=== PATIENT | female | born 1985 | race Caucasian/White ===

== ENCOUNTER 2018-09-28 05:06 | Emergency (ER) | payer BC ==
--- NOTE | 2018-09-28 05:30 | EDPHY ---
H & P Stated Complaint: Took wrong medication by mistake, zoloft instead of Prozac Time Seen by Provider: 09/28/18 05:30 HPI/ROS: HPI CHIEF COMPLAINT: Accidentally took a dose of Zoloft. HISTORY OF PRESENT ILLNESS: 33-year-old female, otherwise healthy does have a history of depression, currently on Prozac, accidentally took a dose of Zoloft last night. Patient reports that she has had racing heart since taking this she has been up all night. Very little sleep. She arrives to the emergency room due to this. Denies any chest pain or shortness of breath. Does feel anxious. Past Medical History: Depression Past Surgical History: No recent surgery Social History: Denies drugs alcohol tobacco. Family History: Noncontributory ROS REVIEW OF SYSTEMS: 10 Systems were reviewed and negative with the exception of the elements mentioned in the history of present illness. Exam Constitutional nontoxic, triage nursing summary reviewed, vital signs reviewed , awake/alert. Eyes normal conjunctivae and sclera, EOMI, PERRLA. HENT normal inspection, atraumatic, moist mucus membranes, no epistaxis, neck supple/ no meningismus, no raccoon eyes. Respiratory clear to auscultation bilaterally, normal breath sounds, no respiratory distress, no wheezing. Cardiovascular rate normal, regular rhythm, no murmur, no edema, distal pulses normal. Gastrointestinal soft, non-tender, no rebound, no guarding, normal bowel sounds, no distension, no pulsatile mass. Genitourinary no CVA tenderness. Musculoskeletal no midline vertebral tenderness, full range of motion, no calf swelling, no tenderness of extremities, no meningismus, good pulses, neurovascularly intact. Skin pink, warm, & dry, no rash, skin atraumatic. Neurologic awake, alert and oriented x 3, AAOx3, moves all 4 extremities equally, motor intact, sensory intact, CN II-XII intact, normal cerebellar, normal vision, normal speech. Psychiatric normal mood/affect. Heme/Lymph/Immune no lymphadenopathy. Differential Diagnosis: Includes but is not limited to in a particular order accidental medication ingestion, anxiety, dehydration, cardiac arrhythmia Medical Decision Making: Plan for this patient she appears anxious, she took 1 dose of 20 mg Zoloft by accident. This was not intentional she only took 1 dose. She used to be on this medication but is currently on Prozac. Re-evaluation: Patient arrives emergency room complaining that after she took a dose of Zoloft she became tachycardic. Plan for patient have an EKG... EKG is normal I feel that she can be safely discharged home. She took this medication earlier in the evening. Up all night somewhat anxious. reports control no recommendations. 1 dose of Zoloft. Would not recommend monitoring or further evaluation. EKG interpretation by me on record in [facility] system. Impression time of EKG 5:45 a.m., sinus rhythm rate of 94 no signs of cardiac arrhythmia no prolonged intervals. Nonischemic EKG. Patient re-evaluated continues do well at 6:10 a.m.. The patient does not have any chest pain or shortness of breath and is resting comfortably. She denies any chest pain or shortness of breath. She has not been tachycardic here. No signs of cardiac arrhythmia on the monitor. The patient's EKG is unremarkable... Recommend staying well hydrated today. Additionally return precautions discussed. Source: Patient - Personal History LMP (Females 10-55): 15-21 Days Ago Current Tetanus/Diphtheria Vaccine: Yes Current Tetanus Diphtheria and Acellular Pertussis (TDAP): Yes Tetanus Vaccine Date: 2015 - Medical/Surgical History Hx Asthma: Yes Hx Chronic Respiratory Disease: No Hx Diabetes: No Hx Cardiac Disease: No Hx Renal Disease: No Hx Cirrhosis: No Hx Alcoholism: No Hx HIV/AIDS: No Hx Splenectomy or Spleen Trauma: No Other PMH: ASTHMA, LT EARDRUM RECONSTRUCTION, depression - Social History Smoking Status: Never smoked Constitutional: Initial Vital Signs Temperature (C) 36.7 C 09/28/18 05:13 Heart Rate 91 09/28/18 05:13 Respiratory Rate 16 09/28/18 05:13 Blood Pressure 142/96 H 09/28/18 05:13 O2 Sat (%) 98 09/28/18 05:13 O2 Delivery Mode Room Air Allergies/Adverse Reactions: No Known Allergies Allergy (Unverified 09/28/18 05:11) Home Medications: Medication Instructions Recorded FLUoxetine HCL [Fluoxetine HCl] 20 mg PO 05/22/16 Departure - Departure Disposition: Home, Routine, Self-Care Clinical Impression: Medication adverse effect Qualifiers: Encounter type: initial encounter Qualified Code(s): T50.905G - Adverse effect of unspecified drugs, medicaments and biological substances, initial encounter Condition: Good Instructions: Tachycardia (ED) Additional Instructions: 1. Stay well-hydrated drink lots of fluids. 2. Return emergency room if worsening symptoms Referrals: NONE *PRIMARY CARE P,. [Primary Care Provider] - As per Instructions
[2018-09-28 06:44] VITALS: BP 117/76
--- NOTE | 2018-09-29 06:17 | CPEKG ---
Test Reason : OPEN Blood Pressure : / mmHG Vent. Rate : 094 BPM Atrial Rate : 094 BPM P-R Int : 155 ms QRS Dur : 100 ms QT Int : 357 ms P-R-T Axes : 054 009 028 degrees QTc Int : 447 ms Sinus rhythm Confirmed by Aiden Augustine ([id number]) on 09/29/2018 6:16:11 AM Referred By: Confirmed By:Aiden Augustine
== END 2018-09-28 06:28 | disposition home or self-care (01) ==
DX: R00.8 Other abnormalities of heart beat (principal); T43.205A Adverse effect of unspecified antidepressants, initial encounter; F32.9 Major depressive disorder, single episode, unspecified; J45.909 Unspecified asthma, uncomplicated